=== PATIENT | male | born 1970 | race Two or more races ===

== ENCOUNTER 2022-11-11 09:15 | Inpatient (IN) | payer OTHER ==
[~2022-11-11] VITALS: Ht 172.7 cm; Wt 71.2 kg
[2022-11-11] MEDS ORDERED: COZAAR100 MG PO (11:19)
[2022-11-16] MEDS ORDERED: NEURONTIN300 MG PO (10:02)
[2022-11-16] MEDS ORDERED: ACETAMINOPHEN500 M2 PO (10:02)
== END 2022-11-16 11:00 | disposition home or self-care (01) | DRG 331 ==
LOC: SURH 11-13 09:15 → O/R 11-13 10:40 → SURH 11-13 12:15
PROVIDERS: ADMIT Surgery; ATTEND Surgery
PROC: 0DBP4ZZ Excision of Rectum, Percutaneous Endoscopic Approach (ICD-10-PCS; 2022-11-13)
PROC: 0DJD8ZZ Inspection of Lower Intestinal Tract, Via Natural or Artificial Opening Endoscopic (ICD-10-PCS; 2022-11-13)
PROC: 0DTN4ZZ Resection of Sigmoid Colon, Percutaneous Endoscopic Approach (ICD-10-PCS; principal; 2022-11-13 12:15)
DX: K57.32 Diverticulitis of large intestine without perforation or abscess without bleeding (principal); R10.32 Left lower quadrant pain; R19.4 Change in bowel habit; K66.0 Peritoneal adhesions (postprocedural) (postinfection); I11.9 Hypertensive heart disease without heart failure; Z20.822 Contact with and (suspected) exposure to COVID-19